=== PATIENT | male | born 1970 | race African-American/Black ===

== ENCOUNTER → 2024-11-15 | Emergency (ER) | payer MEDICAID, MEDICARE ==
[~2024-11-15] VITALS: Ht 183.5 cm; Wt 79.5 kg
[~2024-11-15] MED LIST: LEVE500T19 PO; OLAN10TA74 PO
[2024-11-15 10:56] VITALS: TEMP 97.9
[2024-11-15 13:06] LABS: BASOPHILS % (AUTO) 0.8 % (0.0-2.0); EOSINOPHILS % (AUTO) 4.8 % (1.0-6.0); HEMATOCRIT 39.3 % (41-53); LYMPHOCYTES # (AUTO) 1.8 K/uL (1.0-4.8); MEAN CORPUSCULAR HEMOGLOBIN 27.1 pg (26.0-34.0); MEAN CORPUSCULAR VOLUME 82 fL (80-100); MONOCYTES # (AUTO) 0.5 K/uL (0.1-1.0); MONOCYTES % (AUTO) 9.6 % (2.0-9.0); NEUTROPHILS # (AUTO) 2.6 K/uL (1.8-7.7); NEUTROPHILS % (AUTO) 49.8 % (40.0-70.0); PLATELET COUNT (AUTO) 211 K/uL (150-450); RED CELL DISTRIBUTION WIDTH 13.9 % (11.5-14.5); WHITE BLOOD COUNT (AUTO) 5.1 K/uL (4.5-11.0)
[2024-11-15 13:15] LABS: ANION GAP 6 mmol/L (8-16); CALCIUM, TOTAL 8.8 mg/dL (8.8-10.5); CARBON DIOXIDE 28 mmol/L (22-29); CHLORIDE 104 mmol/L (98-107); CREATININE 1.15 mg/dL (0.60-1.30); GLOMERULAR FILTR. RATE CALC > 60 mL/min (>60); GLUCOSE,RANDOM 98 mg/dL (70-110); POTASSIUM 3.6 mmol/L (3.5-5.1); SODIUM SERUM 138 mmol/L (136-145); UREA NITROGEN, BLOOD 8 mg/dL (7-18)
[2024-11-15 13:20] LABS: ALBUMIN 3.7 g/dL (3.4-5.0); BILIRUBIN,DIRECT 0.2 mg/dL (0.00-0.20); BILIRUBIN,TOTAL 1.3 mg/dL (0.1-1.0); TOTAL PROTEIN, SERUM 6.7 g/dL (6.4-8.2)
[2024-11-15 13:22] LABS: TROPONIN I-HIGH SENSITIVITY 7 ng/L (<76)
[2024-11-15 15:54] VITALS: BP 136/87; PULSE 52; RESP 18; O2SAT 98
[2024-11-15] MEDS: LevETIRAcetam 500 MG TABLET PO ONE (15:59)
== END | disposition home or self-care (01) ==
LOC: EMS 10:40
DX: G40.909 Epilepsy, unspecified, not intractable, without status epilepticus (principal); R25.1 Tremor, unspecified; F20.9 Schizophrenia, unspecified
CPT/HCPCS: 99284; 80048; 80076; 84484; 85025; 36415; 93005; G0482

== ENCOUNTER 2024-11-16 20:23 | Emergency (ER) | payer MEDICARE ==
[~2024-11-16] VITALS: Ht 185.4 cm; Wt 84.1 kg
[2024-11-16 20:28] VITALS: BP 136/87; PULSE 70; RESP 18; TEMP 97.9; O2SAT 99
== END 2024-11-16 23:27 | disposition left against medical advice (07) ==
LOC: EMS 20:23
DX: R51.9 Headache, unspecified (principal); Z53.21 Procedure and treatment not carried out due to patient leaving prior to being seen by health care provider